=== PATIENT | female | born 1995 | race Two or more races ===

== ENCOUNTER → 2019-02-01 | Outpatient (REF) | payer OTHER | LOC: M SFHCLERA 11:03 | PROVIDERS: ATTEND Physician Assistant | DX: R52 Pain, unspecified (principal) ==

== ENCOUNTER → 2019-05-07 | Outpatient (REF) | payer OTHER ==
[2019-05-07 19:46] LABS: CHLAMYDIA DNA AMPLIFICATION NEGATIVE (NEGATIVE); GC DNA AMPLIFICATION NEGATIVE (NEGATIVE)
== END ==
LOC: M SFHCLERA 16:51
PROVIDERS: ATTEND Physician Assistant
DX: N89.8 Other specified noninflammatory disorders of vagina (principal)
CPT/HCPCS: 81002; 87070; 87086; 87661; G0463